=== PATIENT | female | born 1930 | race Caucasian/White ===

== ENCOUNTER 2016-06-21 11:38 | Emergency (ER) ==
[2016-06-21 11:50] VITALS: BP 150/79; TEMP 99.3; BMI 29.2
--- NOTE | 2016-06-21 14:41 | DI ---
Exam: Three x-rays of the left hand. Comparison: None available. Reason for exam: Fall on outstretched hand. FINDINGS: There is a comminuted fracture in the proximal left fifth metacarpal. No obvious disrupt ion of the carpal-metacarpal joint. No other fractures are seen. The joint spaces are relatively w ell maintained. There is mild arthrosis. Impression: Comminuted fracture of the proximal fifth metacarpal with overriding fracture fragments. Report faxed at [phone] hours on 06/21/2016
--- NOTE | 2016-06-21 14:41 | DI ---
EXAM: LEFT WRIST THREE VIEWS HISTORY: Injury, pain FINDINGS: There is a fracture at the base of the fifth metacarpal with mild displacement. The frac ture does not appear to extend into the joint and the joint remains grossly intact. No other defini te fracture is seen. The bones appear demineralized. There is pseudoarticulation between the dista l ulna and radius and early osteoarthritis especially at the level of the first carpal-metacarpal tino int. IMPRESSION: Fifth metacarpal fracture.
--- NOTE | 2016-06-21 14:58 | CT ---
EXAM: CT head without contrast. HISTORY: Initial presentation for facial trauma due to a fall. COMPARISON: 11/18/2015, 06/09/2014. TECHNIQUE: Multiple axial images of the brain were obtained from the skull base through the vertex without intravenous contrast. FINDINGS: There is no intracranial hemorrhage or extraaxial collection. The spann-white differentia tion is maintained without evidence for acute large vascular territory infarction. There are areas of periventricular and subcortical white matter low attenuation. The cortical sulci and cerebral ve ntricles are symmetrically enlarged. The basal cisterns are well visualized. There is no hydroceph alus, mass effect, or midline shift. Right occipital craniotomy changes noted. No calvarial fractu re identified. Chronic right maxillary sinusitis is incompletely imaged. Remainder of the paranasa l sinuses and mastoid air cells are clear. Left frontal scalp hematoma noted. Metallic structure a nterior to the right globe again noted. IMPRESSION: 1. No acute intracranial abnormality. 2. Chronic small vessel ischemic changes and atrophy.
--- NOTE | 2016-06-21 15:04 | ED.PDOC ---
General ED Provider: Dr. DANI HERNANDEZ JR Chief Complaint: Fall Stated Complaint: going into [employer] in [place], [place]--misjudged curb and fell- struck head--did not pass out--left hand and injured 4th/5th fingers to rt hand- -still has swelling and greenish discoloration to left forehead--is alert--no confusion since fall--states hand is worse injury[ End ]150/79 2 99.3 72 16 96 fall--left hand/wrist injury[ End ] Time Seen by Physician: 13:50 Mode of Arrival: Wheelchair Information Source: Patient Exam Limitations: No limitations Primary Care Provider: MELA FLOWERS Nursing and Triage Documentation Reviewed and Agree: No Review of Systems - Review Of Systems Constitutional: Reports: No symptoms Eyes: Reports: No symptoms Ears, Nose, Mouth, Throat: Reports: No symptoms (note left facial bruising) Respiratory: Reports: No symptoms Cardiac: Reports: No symptoms GI: Reports: No symptoms : Reports: No symptoms Musculoskeletal: Reports: Joint pain (left hand and wrist) Skin: Reports: No symptoms Neurological: Reports: No symptoms Endocrine: Reports: No symptoms Hematologic/Lymphatic: Reports: No symptoms All Other Systems: Other Past Medical History - Past Medical History Endocrine: Reports: None Cardiovascular: Reports: Hypertension Respiratory: Reports: None Hematological: Reports: None Gastrointestinal: Reports: None Genitourinary: Reports: None Neuro/Psych: Reports: None Musculoskeletal: Reports: None Cancer: Reports: None Last Menstrual Period: hysterectomy - Surgical History General Surgical History: Reports: Hysterectomy, Cholecystectomy, Tonsillectomy , Orthopedic (knee ), Other (cyst removed from ovary- ear surgery) - Family History Family History: Reports: Unknown - Social History Smoking Status: Never smoker Hx Substance Use: No Alcohol Screening: None Physical Exam - Physical Exam Appearance: Well-appearing, Thin Pain Distress: Mild Eyes: ANDRES, EOMI, Conjunctiva clear Neck: Supple Respiratory: Airway patent Musculoskeletal: Normal strength, ROM intact, No edema, No calf tenderness ( tender left lateral hand and wrist) Skin: Warm, Dry, Normal color (exceptbruising left hand and left face perrl eomi cn's intact) Neurological: Sensation intact, Motor intact, Alert, Oriented Psychiatric: Affect appropriate Critical Care Note - Critical Care Note Total Time (mins): 0 Course - Course Orders, Labs, Meds: Orders Category Date Time Status CT HEAD W/O CONTRAST Stat RADS 06/21/16 14:08 Completed HAND, LEFT 3 VIEWS Stat RADS 06/21/16 13:59 Completed WRIST, LEFT 3 VIEWS Stat RADS 06/21/16 13:59 Completed Vital Signs: Temp Pulse Resp BP Pulse Ox 06/21/16 11:38 99.3 F 72 16 150/79 H 96 Departure - Departure Time of Disposition: 15:06 Disposition: HOME SELF-CARE Discharge Problem: Fracture of left hand Qualifiers: Encounter type: initial encounter Fracture type: closed Qualifier Code: ( S62.92XA) Unspecified fracture of left wrist and hand, initial encounter for closed fracture Instructions: Hand Fracture (ED) Condition: Good Pt referred to PMD for follow-up: Yes Additional Instructions: follow up PMD discuss orthopedic evaluation Tylenol for pain [employer] for pain not controlled Prescriptions: Hydrocodone Bit/Acetaminophen [[employer] 5-325] 1 - 2 tab PO Q6HR PRN #12 tablet PRN Reason: pain Allergies/Adverse Reactions: Allergies quinine Adverse Reaction (Verified 06/21/16 11:47) Sulfa (Sulfonamide Antibiotics) Adverse Reaction (Verified 06/21/16 11:47) Home Medications: Ambulatory Orders Aspirin [Aspirin EC] 1 tab PO DAILY 12/02/12 Esomeprazole Magnesium [Nexium] 1 cap PO DAILY 12/02/12 Metoprolol Tartrate [Lopressor] 1 tab PO DAILY 12/02/12 Cholecalciferol (Vitamin D3) [Vitamin D3] 1,000 units PO DAILY 02/01/16 Losartan/Hydrochlorothiazide [Losartan-Hctz 100-25 mg Tab] 0.5 each PO DAILY Hydrocodone Bit/Acetaminophen [[employer] 5-325] 1 - 2 tab PO Q6HR PRN #12 tablet 11/28
== END 2016-06-21 15:16 | disposition home or self-care (01) ==
LOC: ED 11:38
DX: S62.317A Displaced fracture of base of fifth metacarpal bone, left hand, initial encounter for closed fracture (principal); S00.83XA Contusion of other part of head, initial encounter; S69.91XA Unspecified injury of right wrist, hand and finger(s), initial encounter; W01.0XXA Fall on same level from slipping, tripping and stumbling without subsequent striking against object, initial encounter
CPT/HCPCS: 99283

== ENCOUNTER 2017-01-09 06:24 | Outpatient (CLI) | END 2017-01-09 06:25 | disposition home or self-care (01) | LOC: CAR 06:24 | PROVIDERS: ATTEND Internal Medicine | DX: R06.02 Shortness of breath (principal); I10 Essential (primary) hypertension; Z01.810 Encounter for preprocedural cardiovascular examination | CPT/HCPCS: 93005; 93010 ==

== ENCOUNTER 2017-01-10 07:07 | Outpatient (CLI) ==
[2017-01-10] MEDS ORDERED: DOBUTAMINE 250 ML IV ONE (07:28)
[2017-01-10] MEDS ORDERED: ATROPINE SULFATE PFS ONE (07:29)
--- NOTE | 2017-01-10 12:41 | ECHO2D ---
Date of Exam: 01/09/17 Ordering Physician: MARIA LUISA FLOWERS Room #: OP Reason for Echo: SURGICAL CLEARANCE, SOB, HYPERTENSION M-Mode Normal Adult Results LV Dimensions Normal Adult Results AoV Opening excursions >1.6 >1.6 LVEDD-base- 3.5-5.8 4.8 Ao root dimensions 2.0-3.7 3.2 LVESD-base- 3.1-4.6 L. Atrium dimensions 1.9-3.8 3.9 Post. Wall thickness 0.8-1.1 1.1 IV septum (thickness) 0.7-1.2 1.3 Post. Wall excursion 0.72-1.3 NORMAL Septal motion 0.7 Systolic motion R. Ventricular cavity 1.5-2.0 NORMAL LVEF 60% 50% Paradoxical septal wall motion NORMAL 2-D : 2-D M Mode Echocardiogram was performed using apical four chamber and left parasternal long and short axis views. Mitral, tricuspid and aortic valves appear to be normal. Contractility of the left ventricle seems to be normal, so is the cavity size. Left atrial cavity size and aortic root appear to be normal. There is no pericardial effusion. There is no thrombus noted in the left ventricular or left aortic cavity. No mitral valve prolapse noted. M-MODE: MV: NORMAL AV: NORMAL TV: NORMAL PV: CHAMBER SIZE: NORMAL WALL MOTION: NORMAL PERICARDIUM: NORMAL INTERPRETATION: 1. BORDERLINE LEFT VENTRICULAR HYPERTROPHY 2. NORMAL LEFT VENTRICULAR CONTRACTILITY 3. NORMAL VALVES MTDD
--- NOTE | 2017-01-11 11:07 | DOBSTECHO ---
Ordering Physician: MELA FLOWERS Date of Test: 01/11/17 Reason for Examination: SURGICAL CLEARANCE, SOB, HYPERTENSION Current Medications: LOSARTAN, LOPRESSOR, VITAMIN D3, PROTONIX, ASA Height: 62" Weight: 165 Target Heart Rate: 115/136 ST Segment Stage Time HR BPM BP mmhg Rhythm +/- Up Down Comments/Symptoms Control Sitting 68 148/88 SR NONE Dobutamine 250mg/D5W 5cmg/KG/mn 10cmg/KG/mn 3" 80 170/82 SR NONE 15cmg/KG/mn 2" 83 170/76 SR NONE 20cmg/KG/mn 2" 90 150/72 SR NONE 25cmg/KG/mn 2" 90 140/64 SR .25 ATROPINE GIVEN 30cmg/KG/mn 2" 92 SR NONE 35cmg/KG/mn 2:06 126 140/66 SR .25 ATROPINE GIVEN 40cmg/KG/mn Time: 3" HR B/P Time: 9" HR B/P Time: HR B/P Recovery 108 136/74 Recovery 82 Recovery Total Time: 13:06 Maximum Heart Rate Reached: 126 Interpretation: 98% OXYGEN SATURATION ON ROOM AIR AT REST 1. NO EVIDENCE OF ISCHEMIA BY ST-T WAVE 2. NO CHEST PAIN OR DISCOMFORT 3. NORMAL LEFT VENTRICULAR CONTRACTILITY--RESTING AND WITH DOBUTAMINE INFUSION 4. [] MTDD
--- NOTE | 2017-01-11 11:10 | ECHOSTRESS ---
Date of Exam: 01/10/17 Ordering Physician: MELA FLOWERS Reason for Echo: SURGICAL CLEARANCE, SOB, HTN, DOBUTAMINE STRESS--NO ISCHEMIA M-Mode Normal Adult Results LV Dimensions Normal Adult Results AoV Opening excursions >1.6 LVEDD-base- 3.5-5.8 Ao root dimensions 2.0-3.7 LVESD-base- 3.1-4.6 L. Atrium dimensions 1.9-3.8 Post. Wall thickness 0.8-1.1 IV septum (thickness) 0.7-1.2 Post. Wall excursion 0.72-1.3 Septal motion Systolic motion R. Ventricular cavity 1.5-2.0 LVEF 60% Paradoxical septal wall motion 2-D: NORMAL LEFT VENTRICULAR CONTRACTILITY--RESTING AND WITH DOBUTAMINE INFUSION M-MODE: MV: AV: TV: PV: CHAMBER SIZE: WALL MOTION: NORMAL LEFT VENTRICULAR CONTRACTILITY--RESTING AND WITH DOBUTAMINE INFUSION PERICARDIUM: INTERPRETATION: 1. NORMAL LEFT VENTRICULAR CONTRACTILITY--RESTING AND WITH DOBUTAMINE INFUSION MTDD
== END 2017-01-10 07:08 | disposition home or self-care (01) ==
LOC: CAR 07:07
PROVIDERS: ATTEND Internal Medicine
DX: R06.02 Shortness of breath (principal); I10 Essential (primary) hypertension; Z01.810 Encounter for preprocedural cardiovascular examination

== ENCOUNTER 2017-01-19 12:29 | Inpatient (IN) ==
[2017-01-19 12:55] VITALS: BMI 30.9
[2017-01-19] MEDS ORDERED: PHENERGAN TAB PO PRN (13:09)
--- NOTE | 2017-01-19 14:59 | RS.PTINEVL ---
Subjective - Patient information Date of Evaluation: 01/19/17 Date of Arrival on Unit: 01/19/17 Admitted From:: Facility Transfer Diagnosis: OA Usual Living Arrangement: Alone Home Environment: House, Stairs (few) (1 step into house), No rail Medical History: Hypertension, Arthritis Medical History Comments:: GERD LATEX ALLERGY?: No Surgical History: Knee Replacement, Hysterectomy Surgical History Comments:: facial nerve surgery, inner ear sx Subjective Information/ Patient Comments:: pt states the "blister" area on post thigh is hurting more today. pt states it is from tape that made a blister. 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 Incision R knee with drsg intact with drainage noticeable on drsg. Range of Motion - ROM Right Upper Extremity AROM: WFL's Left Upper Extremity AROM: WFL's Right Lower Extremity AROM: Marked limitation (R knee flex 55 ext -12 AAROM) Left Lower Extremity AROM: WFL's Muscle Strength - Muscle Strength Right Upper Extremity Strength: Mild Weakness (grossly 4/5) Left Upper Extremity Strength: Mild Weakness (grossly 4/5) Right Lower Extremity Strength: Mild Weakness (hip flex 3+/5, knee flex/ext 3-/5 , ankle DF/PF 4/5) Left Lower Extremity Strength: Mild Weakness (grossly 4+/5) Sensation - Sensation Right Upper Extremity Sensation: Intact/Normal Left Upper Extremity Sensation: Intact/Normal Right Lower Extremity Sensation: Intact/Normal Left Lower Extremity Sensation: Intact/Normal Palpation Palpation Findings: Muscle Guarding (R knee) Balance - Sitting Balance and Reactions Static Sitting Balance: Normal Dynamic Sitting Balance: Normal - Standing Balance and Reactions Static Standing Balance: Fair Dynamic Standing Balance: Poor Standing Equilibrium Reactions: Delayed Left, Delayed Right Standing Protective Reactions: Delayed Left, Delayed Right - Comments Balance Assessment Comments: pt with antalgic gait and flexed posture limiting balance. Functional Mobility - Bed Mobility Rolling R/L: CGA Scooting: Min Assist Supine to Sit: Min Assist Sit to Supine: Min Assist - Transfers Sit to Stand: Min Assist, 1 person assist Stand to Sit: Min Assist, 1 person assist - Safety Awareness Safety Awareness: Good Ambulation - Ambulation Weight Bearing Status: WBAT Assistive Device Used: Rolling Walker Orthotic/Prosthetic Device: No Distance: 100ft Assistance needed with Ambulation: CGA Gait Deviations: Forward posture, Short stride Ambulation Comments: pt amb with antalgic gait with decreased heel strike/toe off on RLE as well as limited R knee flex with gait. Factors Affecting Ambulation: Decreased Balance, Pain, Weakness, Decreased ROM, Decreased Safety, Limited Endurance Treatment time - Time with patient Total treatment time: 42 Patient Education - Education Patient Education: Home Exercise Program, Activity Modification, Education of Plan of Care Teaching Recipient: Patient, Family (Discussion with patient and family regarding TKR protocol and POC) Teaching Methods: Discussion Assessment - Assessment Problem List:: Decreased level of function, Requires training/education, Decreased safety/Risk of falls, Weakness, Pain limits previous level of function Rehab Potential: Good Further Therapy Indicated?: Yes Short Term Goals GOAL #1: pt demonstrate independence with rolling and scooting up in bed Goal to be met by: 01/26/17 GOAL #2: pt transfer sup to/from sit to/from stand CGA to SBA Goal to be met by: 01/26/17 GOAL #3: pt amb with rwx 150ft with increased heel strike on R with CGA Goal to be met by: 01/26/17 Deaf/Hard Of Hearing Specialist Goals GOAL #1: pt transfer sup to/from sit to/from stand indepenently Goal to be met by: 02/02/17 GOAL #2: pt amb 200ft with rwx with no LOB with improved heel strike independently Goal to be met by: 02/02/17 GOAL #3: pt with improved ROM R knee flex 95 ext 0 and independent with HEP Goal to be met by: 02/02/17 Plan Plan of Care: Therapeutic EX, Therapeutic Activity, Self-Care/Home Management Modalities: Cold Pack/Cryotherapy, Electrical Stimulation Other:: gait training Frequency of Treatment: 1-2 X day, as tolerated Duration of Treatment: 2 Weeks Anticipated Discharge Destination: Home Has the Physician been added for Co-signature?: Yes
[2017-01-19] MEDS: PERCOCET 5-325 PO PRN (17:06)
[2017-01-19] MEDS: ASPIRIN EC PO SCH (17:06)
[2017-01-19] MEDS ORDERED: TORADOL IVP SCH (21:00)
[2017-01-20] MEDS: PERCOCET 5-325 PO PRN ×4 (02:00→20:19)
[2017-01-20] MEDS: PROTONIX PO SCH (05:56)
[2017-01-20] MEDS: COLACE PO SCH (08:18)
[2017-01-20] MEDS: VITAMIN D PO SCH (08:18)
[2017-01-20] MEDS: HYZAAR 50-12.5 MG TAB PO SCH (08:18)
[2017-01-20] MEDS: LOPRESSOR PO SCH (08:18)
[2017-01-20] MEDS: ASPIRIN EC PO SCH ×2 (08:18→17:13)
[2017-01-20] MEDS ORDERED: LOSARTAN PO SCH (09:00)
[2017-01-20] MEDS ORDERED: HYDROCHLOROTHIAZIDE PO SCH (09:00)
[2017-01-20] MEDS ORDERED: [UNRECOGNIZED DRUG - OTHER] PO SCH (09:00)
[2017-01-20] MEDS: FERROUS SULFATE PO SCH (20:15)
[2017-01-21] MEDS: PROTONIX PO SCH (05:46)
[2017-01-21] MEDS: PERCOCET 5-325 PO PRN ×4 (06:09→23:11)
[2017-01-21] MEDS: HYZAAR 50-12.5 MG TAB PO SCH (08:28)
[2017-01-21] MEDS: ASPIRIN EC PO SCH ×2 (08:28→17:07)
[2017-01-21] MEDS: VITAMIN D PO SCH (08:28)
[2017-01-21] MEDS: LOPRESSOR PO SCH (08:28)
[2017-01-21] MEDS: FERROUS SULFATE PO SCH ×2 (08:29→20:06)
[2017-01-21] MEDS: COLACE PO SCH (08:29)
[2017-01-22] MEDS: PERCOCET 5-325 PO PRN ×4 (04:45→20:43)
[2017-01-22] MEDS: PROTONIX PO SCH (05:32)
[2017-01-22] MEDS: LOPRESSOR PO SCH (08:12)
[2017-01-22] MEDS: COLACE PO SCH (08:12)
[2017-01-22] MEDS: FERROUS SULFATE PO SCH ×2 (08:12→20:43)
[2017-01-22] MEDS: HYZAAR 50-12.5 MG TAB PO SCH (08:12)
[2017-01-22] MEDS: VITAMIN D PO SCH (08:12)
[2017-01-22] MEDS: ASPIRIN EC PO SCH ×2 (08:12→16:34)
--- NOTE | 2017-01-22 10:25 | PCM.PROG ---
Attending Provider: ATTENDING PROVIDER: Dr. MELA FLOWERS This patient is seen with Sherri Mclean, Nurse Practitioner. DATE OF SERVICE: 01/22/17 SUBJECTIVE: This 86 year old WHITE/ F was hospitalized 01/19/17. The patient is sitting in chair, alert, is feeling better. She is able to walk to bathroom. She would like Ensure with her meals. REVIEW OF SYSTEMS: CONSTITUTIONAL: No night sweats. No fatigue, malaise, lethargy. No fever or chills. HEENT: Eyes: No visual changes. No eye pain. No eye discharge. ENT: No runny nose. No epistaxis. No sinus pain. No odynophagia. No congestion. RESPIRATORY: No cough, no congestion. No hemoptysis. No shortness of breath. CARDIOVASCULAR: No angina symptoms. No CHF symptoms. No atypical chest pain for CAD. No palpitations. No orthopnea.. GASTROINTESTINAL: Decreased appetite. No abdominal pain. No nausea or vomiting. No diarrhea or constipation. No hematemesis. No hematochezia. GENITOURINARY: No urgency. No frequency. No dysuria. No hematuria. No obstructive symptoms. No discharge. No pain. No significant abnormal bleeding. MUSCULOSKELETAL: Right knee pain. NEUROLOGICAL: Awake, alert, oriented to time, place and person. No headache. No neck pain. No syncope. No seizures. No dizziness. PSYCHIATRIC: Not anxious. No depression. No suicidal thoughts. No homicidal thoughts. SKIN: No rash. Incision right anterior knee, healthy looking. ENDOCRINE: No unexplained weight loss. No weight gain. HEMATOLOGIC/LYMPHATIC: No anemia. No purpura. No petechiae. No prolonged or excessive bleeding. No palpable lymph nodes. PHYSICAL EXAMINATION: GENERAL: The patient is awake, alert and oriented, sitting in chair in no distress. VITAL SIGNS: Temperature 98.4 F, Pulse 82, Respiratory Rate 18, BP 120/64, Pulse Ox 95% HEENT: Head normocephalic, atraumatic. Eyes: Extraocular muscles are intact. Pupils are equal, round and reactive to light and accommodation. Ears: No lesions. Nose appeared normal. Throat: No exudate or erythema. NECK: Supple. No JVD, no carotid bruit. No lymphadenopathy or thyromegaly. LUNGS: Clear to auscultation. Percussion note normal. Chest symmetrical. HEART: S1, S2, no S3. No murmurs. No cyanosis or clubbing. No ascites. Pulses: Dorsalis pedis and posterior tibial pulses +1 to +2 both sides. ABDOMEN: Soft. Non-tender. Bowel sounds active. No CVA tenderness. No mass felt. EXTREMITIES: No edema. Full range of motion of all extremities, equal. NEUROLOGIC: No focal deficit. Cranial nerves II through XII are grossly intact. No headache, no double vision or headache. SKIN: Warm, dry and intact. Incision right anterior knee davian in place with scant serosanguinous drainage with bruising surrounding incision. No signs or symptoms of infection. LYMPHATIC: No palpable lymph nodes/no lymphedema. MUSCULOSKELETAL: Normal joints with no swelling. Muscle tone is normal. LAB REVIEW: 01/22/17 04:20 01/22/17 04:20 01/22/17 04:20: Sodium 137, Potassium 3.7, Chloride 104, Carbon Dioxide 24, Anion Gap 12.7, BUN 18, Creatinine 0.71, Estimated GFR (MDRD) 78.00, BUN/ Creatinine Ratio 25.35, Glucose 108, Calcium 8.8, Total Bilirubin 0.90, AST 15, ALT 7 L, Alkaline Phosphatase 56, Total Protein 6.2, Albumin 2.3 L, Globulin 3.9 , Albumin/Globulin Ratio 0.59 01/22/17 04:20: WBC 6.07, RBC 2.91 L, Hgb 8.8 L, Hct 26.2 L, MCV 90.0, MCH 30.2 , MCHC 33.6, RDW Coeff of Liudmila 13.3, Plt Count 291, Immature Gran % (Auto) 0.7, Neut % (Auto) 54.8, Lymph % (Auto) 27.5, Thurston % (Auto) 12.7 H, Eos % (Auto) 3.8 , Baso % (Auto) 0.5, Immature Gran # (Auto) 0.0, Neut # 3.3, Lymph # 1.7, Thurston # 0.8, Eos # 0.2, Baso # 0.0 ASSESSMENT: 1. Right total knee replacement 2. Gait disturbance 3. Anemia related to surgery PLAN: 1. Ensure twice daily 2. Continue PT/OT Plan and coordination of the patient's care discussed in the presence of Guest Services Associate and nurse. CONDITION: Stable SCRIBED BY: BART GUNDERSON Director Design scribed while in presence of service performed by Dr. Flowers/Sherri Mclean APRN on 01/22/17 (0109)
--- NOTE | 2017-01-22 11:49 | RS.OTINEVL ---
Subjective - Patient information Date of Evaluation: 01/22/17 Date of Arrival on Unit: 01/19/17 Admitted From:: Facility Transfer Diagnosis: R TKA, Muscle weakness Usual Living Arrangement: Alone Living Arrangement Comments: Pt lives alone in her house. Pt was independent with all ADLS prior to her surgery. Her niece helps her. Home Environment: House, Stairs (few) (1 step into house), No rail Medical History: Hypertension, Arthritis Medical History Comments:: GERD LATEX ALLERGY?: No Surgical History: Knee Replacement, Hysterectomy Surgical History Comments:: facial nerve surgery, inner ear sx, hysterectomy, Tonsillectomy Subjective Information/ Patient Comments:: "I am having trouble bending it." "I need a Bed side commode thing that goes over the toilet to help me get up. 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 Current Level of Function: Partially Dependent Current Equipment Used at Home: rwx, cane Pain Assessment - Pain Pain Score: 6 Side: right Pain Location Body Site: Knee Pain Aggravating Factors: ADL's, Changing Position, Standing, Sitting, Walking Pain Alleviating Factors: Ice, Medication, Lying Supine Interventions - Objective Patient Orientation: Person, Place, Time, Situation Observation: Pt has bruising in the back of her Right leg. Interventions - ROM Right Upper Extremity AROM: WFL's Left Upper Extremity AROM: WFL's - Strength Right Upper Extremity Strength: Mild Weakness Left Upper Extremity Strength: Mild Weakness - Sensation Right Upper Extremity Sensation: Intact/Normal Left Upper Extremity Sensation: Intact/Normal Balance - Sitting Balance Static Sitting Balance: Good Dynamic Sitting Balance: Good - Standing Balance Static Standing Balance: Fair Dynamic Standing Balance: Fair ADL Skills - Self Feeding Self Feeding: Independent - Grooming Grooming: CGA - Bathing Bathing UE: CGA, Min Assist Bathing LE: Mod Assist - Dressing Dressing UE: CGA Dressing LE: Max Assist - Toilet Management Toileting Management: Min Assist Functional Mobility - Bed Mobility Rolling R/L: Independent Scooting: Supervision Supine to Sit: Supervision Sit to Supine: Supervision - Transfers Sit to Stand: CGA Stand to Sit: CGA Stand Pivot Transfers: CGA - Ambulation Weight Bearing Status: WBAT Assistive Device Used: Rolling Walker Assistance needed with Ambulation: CGA - Safety Awareness Safety Awareness: Good Additional Treatment Performed - Additional units charged Exercise: 15 ADL: 15 - Time with patient Total treatment time: 58 Activities Patient Interests:: Watching Television, Visiting/Socializing Patient Education Patient Education: Education of diagnosis, Home Exercise Program, Home Safety Teaching Recipient: Patient Teaching Methods: Discussion, Demonstration Assessment Problem List:: Decreased level of function, Requires training/education, Decreased safety/Risk of falls, Weakness, Pain limits previous level of function Rehab Potential: Good Further Therapy Indicated?: Yes Short Term Goals - Goals GOAL 1: Pt to tolerate sink level activities CGA Goal to be met by: 01/29/17 GOAL 2: Pt to increase LB dressing to CGA. Goal to be met by: 01/29/17 GOAL 3: Pt to tolerate standing activity for 15 minutes. Goal to be met by: 01/29/17 Shelter Goals GOAL 1: Pt to tolerate sink level activities Mod-I. Goal to be met by: 02/09/17 GOAL 2: Pt to increase Self care management to Mod-I. Goal to be met by: 02/09/17 GOAL 3: Pt to tolerate standing activity for 20 minutes. Goal to be met by: 02/09/17 Plan Plan of Care: Therapeutic EX, Neuromuscular Re-Educ, Therapeutic Activity, Self- Care/Home Management Frequency of Treatment: 1-2 X day, as tolerated Duration of Treatment: 2 Weeks Anticipated Discharge Destination: Home Has the Physician been added for Co-signature?: Yes
--- NOTE | 2017-01-22 13:59 | HP ---
DATE OF SERVICE: 01/19/17 REASON FOR HOSPITALIZATION/HISTORY OF PRESENT ILLNESS: 86-year-old white female is in the swing bed after right total knee replacement on 01/16/17 at [facility]. The patient is complaining of right knee soreness. PAST MEDICAL HISTORY: Hypertension Dyslipidemia Colon polyps Diabetes mellitus, borderline Facial palsy Bronchial asthma PAST SURGICAL HISTORY: Left total knee replacement 2010 REVIEW OF SYSTEMS: CONSTITUTIONAL: No night sweats. No fatigue, malaise, lethargy. No fever or chills. HEENT: Eyes: No visual changes. No eye pain. No eye discharge. ENT: No runny nose. No epistaxis. No sinus pain. No sore throat. No odynophagia. No ear pain. No congestion. RESPIRATORY: No cough, no congestion. No hemoptysis. No shortness of breath. CARDIOVASCULAR: No angina symptoms. No CHF symptoms. No atypical chest pain for CAD. No palpitations. No orthopnea. GASTROINTESTINAL: No abdominal pain. No nausea or vomiting. No diarrhea or constipation. No hematemesis. No hematochezia. GENITOURINARY: No urgency. No frequency. No dysuria. No hematuria. No obstructive symptoms. No discharge. No pain. No significant abnormal bleeding. MUSCULOSKELETAL: Right knee soreness. NEUROLOGICAL: No headache. No neck pain. No syncope. No seizures. No dizziness. PSYCHIATRIC: Not anxious. No depression. No suicidal thoughts. No homicidal thoughts. SKIN: No rash. Right knee incision. ENDOCRINE: No unexplained weight loss. No weight gain. HEMATOLOGIC/LYMPHATIC: No anemia. No purpura. No petechiae. No prolonged or excessive bleeding. No palpable lymph nodes. PERSONAL/FAMILY/SOCIAL HISTORY: The patient is , nonsmoker, no alcohol use. MEDICATIONS: Lopressor 50 mg p.o. daily Aspirin one a day Losartan 100-25 one-half tab daily Lorazepam 0.5 mg p.r.n. Protonix 40 mg p.o. daily ALLERGIES: SULFA, QUININE PHYSICAL EXAMINATION: GENERAL: The patient is oriented to time, place and person. VITAL SIGNS: Temperature 98, pulse 70, respiratory rate 15, BP 138/74. Height 5' 2; weight 165 lbs. HEENT: Head normocephalic, atraumatic. Eyes: Extraocular muscles are intact. Pupils are equal, round and reactive to light and accommodation. Ears: No lesions. Nose appeared normal. Throat: No exudate or erythema. NECK: Supple. No JVD, no carotid bruit. No lymphadenopathy or thyromegaly. LUNGS: Decreased breath sounds but clear to auscultation. Percussion note normal. Chest symmetrical. HEART: S1, S2, no S3. No murmurs. No cyanosis or clubbing. No ascites. Pulses: Dorsalis pedis and posterior tibial pulses +1 to +2 both sides. ABDOMEN: Soft. Nontender. Bowel sounds active. No CVA tenderness. No mass felt. EXTREMITIES: Right knee is swollen, right calf has swelling, no redness noted. Left lower extremity normal. Full range of motion of all extremities, equal. NEUROLOGIC: No focal deficit. Cranial nerves II through XII are grossly intact. No headache, no double vision or headache. SKIN: Not dry. Intact. Turgor - normal. LYMPHATIC: No palpable lymph nodes/no lymphedema. MUSCULOSKELETAL: Normal joints with no swelling. Muscle tone is normal. ASSESSMENT: 1. RIGHT TOTAL KNEE REPLACEMENT 01/16/17 WITHOUT ANY COMPLICATIONS 2. HYPERTENSION 3. ASTHMA 4. DYSLIPIDEMIA 5. COLONIC POLYP 6. DIABETES MELLITUS 7. FACIAL PALSY 8. LEFT TOTAL KNEE REPLACEMENT 2010 PLAN: 1. Continue all the medicine, Lopressor, Losartan, Lorazepam, Protonix 2. Continue blood thinner 3. Physical therapy consultation 4. Will watch the wound for any infection; also will watch for DVT CONDITION: Stable TIME SPENT: More than 70 minutes. MTDD
--- NOTE | 2017-01-22 14:33 | PN ---
DATE OF SERVICE: 01/20/17 SUBJECTIVE: 86-year-old white female hospitalized with right total knee replacement done four days ago. The patient is feeling better. She is complaining of soreness of the right knee. REVIEW OF SYSTEMS: CONSTITUTIONAL: No night sweats. No fatigue, malaise, lethargy. No fever or chills. HEENT: Eyes: No visual changes. No eye pain. No eye discharge. ENT: No runny nose. No epistaxis. No sinus pain. No sore throat. No odynophagia. No congestion. RESPIRATORY: No cough, no congestion. No hemoptysis. No shortness of breath. CARDIOVASCULAR: No angina symptoms. No CHF symptoms. No atypical chest pain for CAD. No palpitations. No orthopnea. GASTROINTESTINAL: Appetite seems to be improving. No abdominal pain. No nausea or vomiting. No diarrhea or constipation. No hematemesis. No hematochezia. GENITOURINARY: No urgency. No frequency. No dysuria. No hematuria. No obstructive symptoms. No discharge. No pain. No significant abnormal bleeding. MUSCULOSKELETAL: Soreness of right knee. NEUROLOGICAL: No headache. No neck pain. No syncope. No seizures. No dizziness. PSYCHIATRIC: Not anxious. No depression. No suicidal thoughts. No homicidal thoughts. SKIN: No rash. No lesions. No wounds. ENDOCRINE: No unexplained weight loss. No weight gain. HEMATOLOGIC/LYMPHATIC: No anemia. No purpura. No petechiae. No prolonged or excessive bleeding. No palpable lymph nodes. PHYSICAL EXAMINATION: GENERAL: The patient is oriented to time, place and person. VITAL SIGNS: Temperature 98, pulse 93, respiratory rate 20, BP 112/60, pulse ox 94%, looks somewhat pale. No JVP, no bruit. HEENT: Head normocephalic, atraumatic. Eyes: Extraocular muscles are intact. Pupils are equal, round and reactive to light and accommodation. Ears: No lesions. Nose appeared normal. Throat: No exudate or erythema. NECK: Supple. No JVD, no carotid bruit. No lymphadenopathy or thyromegaly. LUNGS: Clear to auscultation. Percussion note normal. Chest symmetrical. HEART: S1, S2, no S3. No murmurs. No cyanosis or clubbing. No ascites. Pulses: Dorsalis pedis and posterior tibial pulses +1 to +2 both sides. ABDOMEN: Soft. Nontender. Bowel sounds active. No CVA tenderness. No mass felt. EXTREMITIES: Right knee is swollen. No evidence of infection or drainage. The calf muscles are particularly nontender. Mild swelling of the right calf. No red streaks. Full range of motion of all extremities, equal. NEUROLOGIC: No focal deficit. Cranial nerves II through XII are grossly intact. No headache, no double vision or headache. SKIN: Not dry. Intact. Turgor - normal. LYMPHATIC: No palpable lymph nodes/no lymphedema. MUSCULOSKELETAL: Normal joints with no swelling. Muscle tone is normal. LABS: Hemoglobin 8.4, hematocrit 25. ASSESSMENT: 1. Right knee replacement 2. Anemia 3. Left total knee replacement 2010 requiring blood transfusion 4. Hypertension PLAN: 1. Daily CBC, CMP 2. Will also put her on iron supplements 3. The patient is already on Protonix 4. T4 and TSH in the morning 5. The patient is going to be continued on physical therapy, she is a good candidate. She is motivated. CONDITION: Stable. TIME SPENT: More than 30 minutes. Plan and coordination of the patient's care discussed in the presence of nurse. PARAM
[2017-01-23] MEDS: PERCOCET 5-325 PO PRN ×3 (04:02→20:29)
[2017-01-23] MEDS: PROTONIX PO SCH (05:51)
--- NOTE | 2017-01-23 07:04 | PN ---
DATE OF SERVICE: 01/22/17 SUBJECTIVE: 86-year-old white female hospitalized with right knee replacement. The patient' s incision is healing well. The leg doesn't show any swelling. Hemoglobin and hematocrit is stable. PHYSICAL EXAMINATION: HEENT: Head normocephalic, atraumatic. Eyes: Extraocular muscles are intact. Pupils are equal, round and reactive to light and accommodation. Ears: No lesions. Nose appeared normal. Throat: No exudate or erythema. NECK: Supple. No JVD, no carotid bruit. No lymphadenopathy or thyromegaly. LUNGS: Decreased breath sounds. Clear to auscultation. Percussion note normal. Chest symmetrical. HEART: S1, S2, no S3. No murmurs. No cyanosis or clubbing. No ascites. Pulses: Dorsalis pedis and posterior tibial pulses +1 to +2 both sides. ABDOMEN: Soft. Nontender. Bowel sounds active. No CVA tenderness. No mass felt. EXTREMITIES: Right knee swollen. No evidence of infection. Full range of motion of all extremities, equal. NEUROLOGIC: No focal deficit. Cranial nerves II through XII are grossly intact. No headache, no double vision or headache. SKIN: Not dry. Intact. Turgor - normal. LYMPHATIC: No palpable lymph nodes/no lymphedema. MUSCULOSKELETAL: Normal joints with no swelling. Muscle tone is normal. The patient was seen and examined with nurse practitioner and patient case manager. CONDITION: Stable TIME SPENT: More than 30 minutes. Plan and coordination of the patient's care discussed in the presence of nurse. PARAM
[2017-01-23] MEDS: COLACE PO SCH (09:25)
[2017-01-23] MEDS: LOPRESSOR PO SCH (09:25)
[2017-01-23] MEDS: ASPIRIN EC PO SCH ×2 (09:25→17:07)
[2017-01-23] MEDS: HYZAAR 50-12.5 MG TAB PO SCH (09:25)
[2017-01-23] MEDS: FERROUS SULFATE PO SCH ×2 (09:25→20:29)
[2017-01-23] MEDS: VITAMIN D PO SCH (09:25)
--- NOTE | 2017-01-23 09:38 | PN ---
DATE OF SERVICE: 01/23/17 SUBJECTIVE: The patient is hospitalized with right knee replacement. The right knee soreness is much less. She is up and about. Hemoglobin and hematocrit are stable. No evidence of active GI bleed. She is on aspirin one twice a day. Right calf is nontender. No evidence of DVT clinically. PHYSICAL EXAMINATION: HEENT: Head normocephalic, atraumatic. Eyes: Extraocular muscles are intact. Pupils are equal, round and reactive to light and accommodation. Ears: No lesions. Nose appeared normal. Throat: No exudate or erythema. NECK: Supple. No JVD, no carotid bruit. No lymphadenopathy or thyromegaly. LUNGS: Clear to auscultation. Percussion note normal. Chest symmetrical. HEART: S1, S2, no S3. No murmurs. No cyanosis or clubbing. No ascites. Pulses: Dorsalis pedis and posterior tibial pulses +1 to +2 both sides. ABDOMEN: Soft. Nontender. Bowel sounds active. No CVA tenderness. No mass felt. EXTREMITIES: No edema. Full range of motion of all extremities, equal. NEUROLOGIC: No focal deficit. Cranial nerves II through XII are grossly intact. No headache, no double vision or headache. SKIN: Not dry. Intact. Turgor - normal. LYMPHATIC: No palpable lymph nodes/no lymphedema. MUSCULOSKELETAL: Normal joints with no swelling. Muscle tone is normal. NOTE: The patient had blood transfusions given during last left knee replacement 2010. The patient's condition is stable. The patient is seen and examined with nurse practitioner and case picker. TIME SPENT: More than 30 minutes. Plan and coordination of the patient's care discussed in the presence of nurse. PARAM
[2017-01-23] MEDS: NYSTATIN ORAL SUSP PO SCH ×2 (17:59→20:29)
[2017-01-24] MEDS: PROTONIX PO SCH (05:32)
[2017-01-24] MEDS: NYSTATIN ORAL SUSP PO SCH ×4 (05:32→20:08)
[2017-01-24] MEDS: PERCOCET 5-325 PO PRN ×2 (06:41→20:08)
[2017-01-24] MEDS: FERROUS SULFATE PO SCH ×2 (08:57→20:08)
[2017-01-24] MEDS: LOPRESSOR PO SCH (08:57)
[2017-01-24] MEDS: VITAMIN D PO SCH (08:57)
[2017-01-24] MEDS: ASPIRIN EC PO SCH ×2 (08:57→16:38)
[2017-01-24] MEDS: COLACE PO SCH (08:57)
[2017-01-24] MEDS: HYZAAR 50-12.5 MG TAB PO SCH (08:57)
--- NOTE | 2017-01-24 09:52 | PCM.PROG ---
Attending Provider: ATTENDING PROVIDER: Dr. MELA FLOWERS DATE OF SERVICE: 01/24/17 SUBJECTIVE: This 86 year old WHITE/ F was hospitalized 01/19/17. The patient is hospitalized on the swing bed with right knee replacement. Hemoglobin and hematocrit are stable with no further drop. The patient has a large hematoma posterior right thigh from surgery. The calf is mildly discolored with hematoma but seems to be getting better. Incision looks clean with no infection and has multiple davian. The patient is motivated, is up and about progressing well with PT. She has stomatitis and being treated with Nystatin. REVIEW OF SYSTEMS: CONSTITUTIONAL: No night sweats. No fatigue, malaise, lethargy. No fever or chills. HEENT: Eyes: No visual changes. No eye pain. No eye discharge. ENT: No runny nose. No epistaxis. No sinus pain. No odynophagia. No congestion. RESPIRATORY: No cough, no congestion. No hemoptysis. No shortness of breath. CARDIOVASCULAR: No angina symptoms. No CHF symptoms. No atypical chest pain for CAD. No palpitations. No orthopnea.. GASTROINTESTINAL: No abdominal pain. No nausea or vomiting. No diarrhea or constipation. No hematemesis. No hematochezia. GENITOURINARY: No urgency. No frequency. No dysuria. No hematuria. No obstructive symptoms. No discharge. No pain. No significant abnormal bleeding. MUSCULOSKELETAL: No musculoskeletal pain; no joint swelling. NEUROLOGICAL: Awake, alert, oriented to time, place and person. No headache. No neck pain. No syncope. No seizures. No dizziness. PSYCHIATRIC: Not anxious. No depression. No suicidal thoughts. No homicidal thoughts. SKIN: No rash. No lesions. Right knee incision with some bruising. ENDOCRINE: No unexplained weight loss. No weight gain. HEMATOLOGIC/LYMPHATIC: No anemia. No purpura. No petechiae. No prolonged or excessive bleeding. No palpable lymph nodes. PHYSICAL EXAMINATION: GENERAL: The patient is awake, alert and oriented, lying in bed in no distress. VITAL SIGNS: Temperature 98.4 F, Pulse 86, Respiratory Rate 16, BP 135/71, Pulse Ox 96% HEENT: Head normocephalic, atraumatic. Eyes: Extraocular muscles are intact. Pupils are equal, round and reactive to light and accommodation. Ears: No lesions. Nose appeared normal. Throat: No exudate or erythema. NECK: Supple. No JVD, no carotid bruit. No lymphadenopathy or thyromegaly. LUNGS: Clear to auscultation. Percussion note normal. Chest symmetrical. HEART: S1, S2, no S3. No murmurs. No cyanosis or clubbing. No ascites. Pulses: Dorsalis pedis and posterior tibial pulses +1 to +2 both sides. ABDOMEN: Soft. Non-tender. Bowel sounds active. No CVA tenderness. No mass felt. EXTREMITIES: No edema. Full range of motion of all extremities, equal. NEUROLOGIC: No focal deficit. Cranial nerves II through XII are grossly intact. No headache, no double vision or headache. SKIN: Warm and dry. Intact. Turgor-normal. Right knee incision with some bruising, no evidence of infection. LYMPHATIC: No palpable lymph nodes/no lymphedema. MUSCULOSKELETAL: Normal joints with no swelling. Muscle tone is normal. LAB REVIEW: 01/24/17 04:15 01/24/17 04:15 01/24/17 04:15: Sodium 137, Potassium 3.4 L, Chloride 102, Carbon Dioxide 25, Anion Gap 13.4, BUN 18, Creatinine 0.69, Estimated GFR (MDRD) 81.00, BUN/ Creatinine Ratio 26.08, Glucose 103, Calcium 8.9, Total Bilirubin 0.87, AST 15, ALT 8 L, Alkaline Phosphatase 54, Total Protein 6.2, Albumin 2.4 L, Globulin 3.8 , Albumin/Globulin Ratio 0.63 01/24/17 04:15: WBC 6.69, RBC 2.95 L, Hgb 8.8 L, Hct 26.3 L, MCV 89.2, MCH 29.8 , MCHC 33.5, RDW Coeff of Liudmila 13.2, Plt Count 355, Immature Gran % (Auto) 0.6, Neut % (Auto) 53.7, Lymph % (Auto) 28.7, Brown % (Auto) 12.7 H, Eos % (Auto) 3.7 , Baso % (Auto) 0.6, Immature Gran # (Auto) 0.0, Neut # 3.6, Lymph # 1.9, Brown # 0.9, Eos # 0.3, Baso # 0.0 ASSESSMENT/PLAN: 1. RIGHT KNEE REPLACEMENT RECOVERING WELL SO FAR WITH NO FURTHER COMPLICATIONS 2. ANEMIA STABLE 3. MILD HYPOKALEMIA TREATED WITH POTASSIUM SUPPLEMENTS 4. HEMATOMA MONITORED, SEEMS TO BE RESOLVING Plan and coordination of the patient's care discussed in the presence of Associate Financial Representative and nurse. CONDITION: Stable SCRIBED BY: BART GUNDERSON Dog Food Dough Mixer scribed while in presence of service performed by Dr. MELA FLOWERS on 01/24/17 ([id number])
[2017-01-24] MEDS: K-DUR PO SCH ×2 (09:57→16:38)
[2017-01-25] MEDS: PERCOCET 5-325 PO PRN ×2 (02:46→22:22)
[2017-01-25] MEDS: PROTONIX PO SCH (05:41)
[2017-01-25] MEDS: NYSTATIN ORAL SUSP PO SCH ×5 (05:41→22:55)
[2017-01-25] MEDS ORDERED: POTASSIUM CHL 10% ORAL SOL PO SCH (09:00)
[2017-01-25] MEDS: ASPIRIN EC PO SCH ×2 (09:36→19:34)
[2017-01-25] MEDS: HYZAAR 50-12.5 MG TAB PO SCH (09:36)
[2017-01-25] MEDS: LOPRESSOR PO SCH (09:37)
[2017-01-25] MEDS: FERROUS SULFATE PO SCH ×2 (09:37→20:17)
[2017-01-25] MEDS: COLACE PO SCH (09:37)
[2017-01-25] MEDS: VITAMIN D PO SCH (09:37)
[2017-01-25] MEDS: K-DUR PO SCH (09:38)
[2017-01-25] MEDS: POTASSIUM CHL 10% ORAL SOL PO SCH ×2 (19:35→22:55)
[2017-01-26] MEDS: PROTONIX PO SCH (05:40)
[2017-01-26] MEDS: NYSTATIN ORAL SUSP PO SCH ×4 (05:40→20:41)
--- NOTE | 2017-01-26 08:42 | PCM.PROG ---
Attending Provider: ATTENDING PROVIDER: Dr. MELA FLOWERS This patient is seen with Sherri Mclean, Nurse Practitioner. DATE OF SERVICE: 01/26/17 SUBJECTIVE: This 86 year old WHITE/ F was hospitalized 01/19/17. The patient is lying in bed, alert. She states pain is well-controlled and has been doing well with therapy. REVIEW OF SYSTEMS: CONSTITUTIONAL: No night sweats. No fatigue, malaise, lethargy. No fever or chills. HEENT: Eyes: No visual changes. No eye pain. No eye discharge. ENT: No runny nose. No epistaxis. No sinus pain. No odynophagia. No congestion. RESPIRATORY: No cough, no congestion. No hemoptysis. No shortness of breath. CARDIOVASCULAR: No angina symptoms. No CHF symptoms. No atypical chest pain for CAD. No palpitations. No orthopnea.. GASTROINTESTINAL: No abdominal pain. No nausea or vomiting. No diarrhea or constipation. No hematemesis. No hematochezia. GENITOURINARY: No urgency. No frequency. No dysuria. No hematuria. No obstructive symptoms. No discharge. No pain. No significant abnormal bleeding. MUSCULOSKELETAL: Right knee pain. NEUROLOGICAL: Awake, alert, oriented to time, place and person. No headache. No neck pain. No syncope. No seizures. No dizziness. PSYCHIATRIC: Not anxious. No depression. No suicidal thoughts. No homicidal thoughts. SKIN: No rash. No lesions. Right knee incision. ENDOCRINE: No unexplained weight loss. No weight gain. HEMATOLOGIC/LYMPHATIC: No anemia. No purpura. No petechiae. No prolonged or excessive bleeding. No palpable lymph nodes. PHYSICAL EXAMINATION: GENERAL: The patient is awake, alert and oriented, lying in bed in no distress. VITAL SIGNS: Temperature 97.5 F, Pulse 78, Respiratory Rate 16, BP 123/66, Pulse Ox 97% HEENT: Head normocephalic, atraumatic. Eyes: Extraocular muscles are intact. Pupils are equal, round and reactive to light and accommodation. Ears: No lesions. Nose appeared normal. Throat: No exudate or erythema. NECK: Supple. No JVD, no carotid bruit. No lymphadenopathy or thyromegaly. LUNGS: Clear to auscultation. Percussion note normal. Chest symmetrical. HEART: S1, S2, no S3. No murmurs. No cyanosis or clubbing. No ascites. Pulses: Dorsalis pedis and posterior tibial pulses +1 to +2 both sides. ABDOMEN: Soft. Non-tender. Bowel sounds active. No CVA tenderness. No mass felt. EXTREMITIES: No edema. Full range of motion of all extremities, equal. Calf is soft and nontender. NEUROLOGIC: No focal deficit. Cranial nerves II through XII are grossly intact. No headache, no double vision or headache. SKIN: Not dry. Intact. Turgor-normal. Right knee incision is clean, dry and intact, no signs or symptoms of infection. Negative Krishan's sign, residual bruising. LYMPHATIC: No palpable lymph nodes/no lymphedema. MUSCULOSKELETAL: Normal joints with no swelling. Muscle tone is normal. LAB REVIEW: 01/26/17 04:16 01/26/17 04:16 01/26/17 04:16: Sodium 139, Potassium 4.2, Chloride 105, Carbon Dioxide 24, Anion Gap 14.2, BUN 18, Creatinine 0.72, Estimated GFR (MDRD) 77.00, BUN/ Creatinine Ratio 25.00, Glucose 95, Calcium 9.2, Total Bilirubin 0.87, AST 20, ALT 6 L, Alkaline Phosphatase 60, Total Protein 6.5, Albumin 2.6 L, Globulin 3.9 , Albumin/Globulin Ratio 0.67 01/26/17 04:16: WBC 7.30, RBC 3.00 L, Hgb 8.9 L, Hct 27.2 L, MCV 90.7, MCH 29.7 , MCHC 32.7, RDW Coeff of Liudmila 13.5, Plt Count 403, Immature Gran % (Auto) 0.7, Neut % (Auto) 56.2, Lymph % (Auto) 27.8, Hemphill % (Auto) 11.2 H, Eos % (Auto) 3.6 , Baso % (Auto) 0.5, Immature Gran # (Auto) 0.1, Neut # 4.1, Lymph # 2.0, Hemphill # 0.8, Eos # 0.3, Baso # 0.0 ASSESSMENT: 1. RIGHT KNEE REPLACEMENT RECOVERING WELL SO FAR WITH NO FURTHER COMPLICATIONS 2. ANEMIA STABLE 3. MILD HYPOKALEMIA TREATED WITH POTASSIUM SUPPLEMENTS 4. HEMATOMA MONITORED, SEEMS TO BE RESOLVING PLAN: 1. Decrease potassium back to b.i.d. Plan and coordination of the patient's care discussed in the presence of Pharmaceutical Officer and nurse. CONDITION: Stable SCRIBED BY: BART GUNDERSON Microsoft Architect scribed while in presence of service performed by Dr. Flowers/Sherri Mclean APRN on 01/26/17 ([id number])
[2017-01-26] MEDS: POTASSIUM CHL 10% ORAL SOL PO SCH ×2 (10:13→20:41)
[2017-01-26] MEDS: HYZAAR 50-12.5 MG TAB PO SCH (10:14)
[2017-01-26] MEDS: VITAMIN D PO SCH (10:14)
[2017-01-26] MEDS: ASPIRIN EC PO SCH ×2 (10:14→16:35)
[2017-01-26] MEDS: FERROUS SULFATE PO SCH ×2 (10:14→20:41)
[2017-01-26] MEDS: COLACE PO SCH (10:14)
[2017-01-26] MEDS: LOPRESSOR PO SCH (10:15)
[2017-01-26] MEDS: PERCOCET 5-325 PO PRN ×3 (11:51→21:48)
[2017-01-27] MEDS: PERCOCET 5-325 PO PRN ×4 (05:13→21:11)
[2017-01-27] MEDS: NYSTATIN ORAL SUSP PO SCH ×4 (05:36→21:11)
[2017-01-27] MEDS: PROTONIX PO SCH (05:37)
[2017-01-27] MEDS: POTASSIUM CHL 10% ORAL SOL PO SCH ×2 (09:06→21:11)
[2017-01-27] MEDS: ASPIRIN EC PO SCH ×2 (09:07→16:49)
[2017-01-27] MEDS: FERROUS SULFATE PO SCH ×2 (09:08→21:11)
[2017-01-27] MEDS: VITAMIN D PO SCH (09:08)
[2017-01-27] MEDS: LOPRESSOR PO SCH (09:08)
[2017-01-27] MEDS: HYZAAR 50-12.5 MG TAB PO SCH (09:08)
[2017-01-27] MEDS: COLACE PO SCH (09:08)
[2017-01-28] MEDS: PERCOCET 5-325 PO PRN ×4 (05:45→20:56)
[2017-01-28] MEDS: NYSTATIN ORAL SUSP PO SCH ×4 (05:45→20:56)
[2017-01-28] MEDS: PROTONIX PO SCH (05:46)
[2017-01-28] MEDS: POTASSIUM CHL 10% ORAL SOL PO SCH ×2 (09:41→20:55)
[2017-01-28] MEDS: ASPIRIN EC PO SCH ×2 (09:42→17:08)
[2017-01-28] MEDS: HYZAAR 50-12.5 MG TAB PO SCH (09:42)
[2017-01-28] MEDS: VITAMIN D PO SCH (09:42)
[2017-01-28] MEDS: LOPRESSOR PO SCH (09:42)
[2017-01-28] MEDS: COLACE PO SCH (09:42)
[2017-01-28] MEDS: FERROUS SULFATE PO SCH ×2 (09:42→20:56)
[2017-01-29] MEDS: PERCOCET 5-325 PO PRN ×5 (01:09→23:06)
[2017-01-29] MEDS: PROTONIX PO SCH (05:58)
[2017-01-29] MEDS: NYSTATIN ORAL SUSP PO SCH ×4 (05:59→20:50)
--- NOTE | 2017-01-29 08:53 | PN ---
DATE OF SERVICE: 01/26/17 SUBJECTIVE: The patient was hospitalized with right knee replacement. The patient's incision looks normal, calf muscles nontender with mild swelling noted of the right knee. The patient's mobility has increased and she is high motivated. Hgb and hct are stable. There is no evidence of active GI bleed. The patient had two units of packed red cells on 2010 after her left knee replacement. The patient was seen and examined with Nurse Practitioner. CONDITION: Stable. TIME SPENT: More than 30 minutes. Plan and coordination of the patient's care discussed in the presence of nurse. PARAM
[2017-01-29] MEDS: HYZAAR 50-12.5 MG TAB PO SCH (09:34)
[2017-01-29] MEDS: ASPIRIN EC PO SCH ×2 (09:34→16:50)
[2017-01-29] MEDS: COLACE PO SCH (09:35)
[2017-01-29] MEDS: POTASSIUM CHL 10% ORAL SOL PO SCH ×2 (09:35→20:50)
[2017-01-29] MEDS: VITAMIN D PO SCH (09:35)
[2017-01-29] MEDS: LOPRESSOR PO SCH (09:35)
[2017-01-29] MEDS: FERROUS SULFATE PO SCH ×2 (09:35→20:50)
--- NOTE | 2017-01-29 11:46 | PCM.PROG ---
Attending Provider: ATTENDING PROVIDER: Dr. MELA FLOWERS This patient is seen with Sherri Mclean, Nurse Practitioner. DATE OF SERVICE: 01/29/17 SUBJECTIVE: This 86 year old WHITE/ F was hospitalized 01/19/17. The patient is lying in bed, alert. She has been advancing well with PT. Anticipate d/c home. The patient will go home and daughter will be staying with her. REVIEW OF SYSTEMS: CONSTITUTIONAL: Weakness. No night sweats. No fever or chills. HEENT: Eyes: No visual changes. No eye pain. No eye discharge. ENT: No runny nose. No epistaxis. No sinus pain. No odynophagia. No congestion. RESPIRATORY: No cough, no congestion. No hemoptysis. No shortness of breath. CARDIOVASCULAR: No angina symptoms. No CHF symptoms. No atypical chest pain for CAD. No palpitations. No orthopnea.. GASTROINTESTINAL: No abdominal pain. No nausea or vomiting. No diarrhea or constipation. No hematemesis. No hematochezia. GENITOURINARY: No urgency. No frequency. No dysuria. No hematuria. No obstructive symptoms. No discharge. No pain. No significant abnormal bleeding. MUSCULOSKELETAL: Right knee pain. NEUROLOGICAL: Awake, alert, oriented to time, place and person. No headache. No neck pain. No syncope. No seizures. No dizziness. PSYCHIATRIC: Not anxious. No depression. No suicidal thoughts. No homicidal thoughts. SKIN: No rash. No lesions. No wounds. ENDOCRINE: No unexplained weight loss. No weight gain. HEMATOLOGIC/LYMPHATIC: No anemia. No purpura. No petechiae. No prolonged or excessive bleeding. No palpable lymph nodes. PHYSICAL EXAMINATION: GENERAL: The patient is awake, alert and oriented, lying in bed in no distress. VITAL SIGNS: Temperature 97.7 F, Pulse 86, Respiratory Rate 16, BP 137/74, Pulse Ox 95% HEENT: Head normocephalic, atraumatic. Eyes: Extraocular muscles are intact. Pupils are equal, round and reactive to light and accommodation. Ears: No lesions. Nose appeared normal. Throat: No exudate or erythema. NECK: Supple. No JVD, no carotid bruit. No lymphadenopathy or thyromegaly. LUNGS: Clear to auscultation. Percussion note normal. Chest symmetrical. HEART: S1, S2, no S3. No murmurs. No cyanosis or clubbing. No ascites. Pulses: Dorsalis pedis and posterior tibial pulses +1 to +2 both sides. ABDOMEN: Soft. Non-tender. Bowel sounds active. No CVA tenderness. No mass felt. EXTREMITIES: +1 edema right lower extremity; trace edema left lower extremity. Full range of motion of all extremities, equal. NEUROLOGIC: No focal deficit. Cranial nerves II through XII are grossly intact. No headache, no double vision or headache. SKIN: Warm and dry. Turgor-normal. Skin incision is clean and dry, intact with no sign of infection. LYMPHATIC: No palpable lymph nodes/no lymphedema. MUSCULOSKELETAL: Normal joints with no swelling. Muscle tone is normal. LAB REVIEW: 01/29/17 05:00 01/29/17 05:00 01/29/17 05:00: Sodium 138, Potassium 4.0, Chloride 104, Carbon Dioxide 25, Anion Gap 13.0, BUN 19 H, Creatinine 0.77, Estimated GFR (MDRD) 71.00, BUN/ Creatinine Ratio 24.67, Glucose 92, Calcium 9.2, Total Bilirubin 0.63, AST 14 L , ALT 7 L, Alkaline Phosphatase 66, Total Protein 6.5, Albumin 2.9 L, Globulin 3.6, Albumin/Globulin Ratio 0.81 01/29/17 05:00: WBC 6.27, RBC 3.16 L, Hgb 9.4 L, Hct 28.7 L, MCV 90.8, MCH 29.7 , MCHC 32.8, RDW Coeff of Liudmila 13.7, Plt Count 374, Immature Gran % (Auto) 0.5, Neut % (Auto) 47.2, Lymph % (Auto) 37.5, Geary % (Auto) 9.7, Eos % (Auto) 4.3, Baso % (Auto) 0.8, Immature Gran # (Auto) 0.0, Neut # 3.0, Lymph # 2.4, Geary # 0.6, Eos # 0.3, Baso # 0.1 ASSESSMENT: 1. RIGHT KNEE REPLACEMENT RECOVERING WELL SO FAR WITH NO FURTHER COMPLICATIONS 2. ANEMIA STABLE 3. MILD HYPOKALEMIA TREATED WITH POTASSIUM SUPPLEMENTS 4. HEMATOMA MONITORED, SEEMS TO BE RESOLVING PLAN: 1. PT OT 2. Remove davian 01/30/17 Plan and coordination of the patient's care discussed in the presence of Switchboard Inspector and nurse. CONDITION: Stable SCRIBED BY: BART GUNDERSON Car Construction Superintendent scribed while in presence of service performed by Dr. Flowers/Sherri Mclean APRN on 01/29/17 ([id number])
[2017-01-29 17:33] VITALS: TEMP 97.1
[2017-01-30] MEDS: NYSTATIN ORAL SUSP PO SCH ×2 (05:59→11:48)
[2017-01-30] MEDS: PROTONIX PO SCH (05:59)
[2017-01-30] MEDS: PERCOCET 5-325 PO PRN ×2 (06:04→11:50)
[2017-01-30 06:15] VITALS: BP 120/67
--- NOTE | 2017-01-30 09:11 | PCM.PROG ---
Attending Provider: ATTENDING PROVIDER: Dr. MELA MATHUR This patient is seen with Sherri Mclean, Nurse Practitioner. DATE OF SERVICE: 01/30/17 SUBJECTIVE: This 86 year old WHITE/ F was hospitalized 01/19/17. The patient is lying in bed, alert. She is ready to go home. The daughter will be staying with her. She would like to do PT and OT as an outpatient at [facility] in [place]. REVIEW OF SYSTEMS: CONSTITUTIONAL: No night sweats. No fatigue, malaise, lethargy. No fever or chills. HEENT: Eyes: No visual changes. No eye pain. No eye discharge. ENT: No runny nose. No epistaxis. No sinus pain. No odynophagia. No congestion. RESPIRATORY: No cough, no congestion. No hemoptysis. No shortness of breath. CARDIOVASCULAR: No angina symptoms. No CHF symptoms. No atypical chest pain for CAD. No palpitations. No orthopnea.. GASTROINTESTINAL: No abdominal pain. No nausea or vomiting. No diarrhea or constipation. No hematemesis. No hematochezia. GENITOURINARY: No urgency. No frequency. No dysuria. No hematuria. No obstructive symptoms. No discharge. No pain. No significant abnormal bleeding. MUSCULOSKELETAL: Right knee pain and swelling. NEUROLOGICAL: Awake, alert, oriented to time, place and person. No headache. No neck pain. No syncope. No seizures. No dizziness. PSYCHIATRIC: Not anxious. No depression. No suicidal thoughts. No homicidal thoughts. SKIN: No rash. No lesions. Right knee incision. ENDOCRINE: No unexplained weight loss. No weight gain. HEMATOLOGIC/LYMPHATIC: No anemia. No purpura. No petechiae. No prolonged or excessive bleeding. No palpable lymph nodes. PHYSICAL EXAMINATION: GENERAL: The patient is awake, alert and oriented, sitting in bed in no distress. VITAL SIGNS: Temperature 97.1 F, Pulse 77, Respiratory Rate 16, BP 120/67, Pulse Ox 97% HEENT: Head normocephalic, atraumatic. Eyes: Extraocular muscles are intact. Pupils are equal, round and reactive to light and accommodation. Ears: No lesions. Nose appeared normal. Throat: No exudate or erythema. NECK: Supple. No JVD, no carotid bruit. No lymphadenopathy or thyromegaly. LUNGS: Clear to auscultation. Percussion note normal. Chest symmetrical. HEART: S1, S2, no S3. No murmurs. No cyanosis or clubbing. No ascites. Pulses: Dorsalis pedis and posterior tibial pulses +1 to +2 both sides. ABDOMEN: Soft. Non-tender. Bowel sounds active. No CVA tenderness. No mass felt. EXTREMITIES: No edema. Full range of motion of all extremities, equal. NEUROLOGIC: No focal deficit. Cranial nerves II through XII are grossly intact. No headache, no double vision or headache. SKIN: Right knee incision is clean, dry and intact. Will remove daivan today. No signs or symptoms of infection. Mild residual bruising and swelling. LYMPHATIC: No palpable lymph nodes/no lymphedema. MUSCULOSKELETAL: Normal joints with no swelling. Muscle tone is normal. LAB REVIEW: 01/30/17 04:05 01/30/17 04:05 01/30/17 04:05: Sodium 138, Potassium 4.2, Chloride 103, Carbon Dioxide 26, Anion Gap 13.2, BUN 20 H, Creatinine 0.81, Estimated GFR (MDRD) 67.00, BUN/ Creatinine Ratio 24.69, Glucose 95, Calcium 8.9, Total Bilirubin 0.4, AST 14 L, ALT 6 L, Alkaline Phosphatase 66, Total Protein 6.2, Albumin 2.7 L, Globulin 3.5 , Albumin/Globulin Ratio 0.77 01/30/17 04:05: WBC 6.29, RBC 3.04 L, Hgb 9.2 L, Hct 27.9 L, MCV 91.8, MCH 30.3 , MCHC 33.0, RDW Coeff of Liudmila 13.9, Plt Count 357, Immature Gran % (Auto) 0.5, Neut % (Auto) 48.7, Lymph % (Auto) 33.7, [place] % (Auto) 12.4 H, Eos % (Auto) 4.1 , Baso % (Auto) 0.6, Immature Gran # (Auto) 0.0, Neut # 3.1, Lymph # 2.1, [place] # 0.8, Eos # 0.3, Baso # 0.0 ASSESSMENT: 1. RIGHT KNEE REPLACEMENT RECOVERING WELL SO FAR WITH NO FURTHER COMPLICATIONS 2. ANEMIA STABLE 3. MILD HYPOKALEMIA TREATED WITH POTASSIUM SUPPLEMENTS 4. HEMATOMA MONITORED, SEEMS TO BE RESOLVING PLAN: 1. D/C home, daughter to stay with her 2. Ferrous Sulfate b.i.d. 3. Potassium 10 mg daily 4. Will followup with Dr. Blackmon 02/14/17 5. PT at [facility] 6. Followup with Dr. Mathur next week Plan and coordination of the patient's care discussed in the presence of Foreign Collection Clerk and nurse. CONDITION: Stable SCRIBED BY: BART GUNDERSON Double End Tenoner Setter scribed while in presence of service performed by Dr. Mathur/Sherri Mclean APRN on 01/30/17 ([id number])
[2017-01-30] MEDS: ASPIRIN EC PO SCH (09:58)
[2017-01-30] MEDS: VITAMIN D PO SCH (09:58)
[2017-01-30] MEDS: FERROUS SULFATE PO SCH (09:58)
[2017-01-30] MEDS: LOPRESSOR PO SCH (09:58)
[2017-01-30] MEDS: POTASSIUM CHL 10% ORAL SOL PO SCH (09:58)
[2017-01-30] MEDS: HYZAAR 50-12.5 MG TAB PO SCH (09:58)
[2017-01-30] MEDS: COLACE PO SCH (09:58)
--- NOTE | 2017-01-30 11:07 | CM.DICTOOL ---
ADMISSION: 01/19/17 12:29 DISCHARGE: January 30, 2017 DATE OF SERVICE: 01/30/17 FINAL DIAGNOSIS Total Right Knee Arthroplasy, January 16, 2017 (Dr. Leon Blackmon) Decline in Functional Mobility Hypertension Anemia, Post-op Hypokalemia GERD Diabetes Mellitus Dyslipidemia Facial Palsy Hysterectomy Left Total Knee Replacement, 2010 LAST VITALS Temp Pulse Resp BP Pulse Ox 97.1 F L 77 16 120/67 97 01/30/17 06:00 01/30/17 06:00 01/30/17 06:00 01/30/17 06:00 01/30/17 06:00 ACTIVE HOME MEDICATIONS Cholecalciferol (Vitamin D) 1,000 unit PO DAILY [facility] Last Admin: 01/30/17 09:58 Dose: 1,000 unit Losartan 50/HCTZ 12.5 mg Daily [facility] Last Admin: 01/30/2017 09:58 Metoprolol Tartrate (Lopressor) 50 mg PO DAILYWM [facility] Last Admin: 01/30/17 09:58 Dose: 50 mg Pantoprazole Sodium (Protonix) 40 mg PO QDAC [facility] Last Admin: 01/30/17 05:59 Dose: 40 mg ALLERGIES quinine Adverse Reaction (Verified 06/21/16 11:47) Sulfa (Sulfonamide Antibiotics) Adverse Reaction (Verified 06/21/16 11:47) NEW PRESCRIPTIONS: Potassium Chloride Solution 10% take 10 meq daily (dilute in water) Ferrous Sulfate 324 mg BID Oxycodone 5-325 mg take 1 tablet every 4-6 hours prn pain (Dr. Blackmon) SMOKING: Not Applicable DISEASE SPECIFIC EDUCATION: Anemia Post-op Knee Replacement, discharge instructions Appointments LAB REVIEW: 01/30/17 04:05 01/30/17 04:05 01/30/17 04:05: Sodium 138, Potassium 4.2, Chloride 103, Carbon Dioxide 26, Anion Gap 13.2, BUN 20 H, Creatinine 0.81, Estimated GFR (MDRD) 67.00, BUN/ Creatinine Ratio 24.69, Glucose 95, Calcium 8.9, Total Bilirubin 0.4, AST 14 L, ALT 6 L, Alkaline Phosphatase 66, Total Protein 6.2, Albumin 2.7 L, Globulin 3.5 , Albumin/Globulin Ratio 0.77 01/30/17 04:05: WBC 6.29, RBC 3.04 L, Hgb 9.2 L, Hct 27.9 L, MCV 91.8, MCH 30.3 , MCHC 33.0, RDW Coeff of Liudmila 13.9, Plt Count 357, Immature Gran % (Auto) 0.5, Neut % (Auto) 48.7, Lymph % (Auto) 33.7, [place] % (Auto) 12.4 H, Eos % (Auto) 4.1 , Baso % (Auto) 0.6, Immature Gran # (Auto) 0.0, Neut # 3.1, Lymph # 2.1, [place] # 0.8, Eos # 0.3, Baso # 0.0 PLAN: Discharge home Diet: Regular as tolerated Activity: Per therapy guidelines for post-op knee replacement. Do not walk for exercise. Use walker with all ambulation Post-op instructions: Showering is permitted. Don't walk for exercise Full weight bearing status with a walker Please fill your prescription for pain medication. You may wean off pain medication as you deem appropriate as long as pain is under control. You may take tylenol instead of the prescribed pain medication as your pain improves. You may use cold packs 3 times daily for 15-30 minutes as necessary. Use a barrier cloth between your skin and the ice pack. Please take a stool softener daily (colace or dulcolax). You may obtain this over the counter at your pharmacy Please take Aspirin 81 mg twice a day for 4 weeks. (june stop 02-16-2017) Do Not Drive for 2 weeks or while taking pain medication Outpatient therapy at [facility] in [place], [place]. [facility] has been contacted for an outpatient order to be sent via fax to [facility]. An appointment will be called to you by [facility]. An appointment is scheduled with Dr. Mathur/Sherri Mclean APRN on February 07 at 2:45 pm An appointment is scheduled with Dr. Leon Blackmon on Feb 14, 2017 at 9:30 am at the [facility] Ms. Mckeon is alert and oriented x 3. She reports pain to the right knee at times, rated at a 3-5 on the pain scale. She reports her pain is relieved by the PRN medication (oxycodone). She denies nausea and her appetite has improved to 50-75%. Ms. Mckeon is transferring from the bed to the chair and chair to the bed independently. She is independent with bed mobility. She is independent with ambulation at distances of 200 feet with use of a rolling walker. She is independent with personal care and toileting. All davian have been removed from the right knee. The incision is clean and well approximated without signs of infection of drainage. Minimal swelling continues to the right knee, right thigh and lower leg. A open blister is present to the posterior right thigh that was present on admission. The area is healing and without signs of infection or drainage. The blister area is open to air. Fred Mathur MD Sherri Mclean APRN
--- NOTE | 2017-01-30 14:49 | PN ---
DATE OF SERVICE: 01/30/17 SUBJECTIVE: The patient was hospitalized on the swing bed with right knee replacement. The incision has completely healed up with evidence of infection. Her hgb and hct has been stable and rising. Her cardiovascular status is stable. She is up and about motivated. She has improved a lot. She will be discharged home. She was seen and examined with Nurse Practitioner and Surgical Aide. TIME SPENT: More than 30 minutes. Plan and coordination of the patient's care discussed in the presence of nurse. PARAM
--- NOTE | 2017-02-01 11:24 | PN ---
DATE OF SERVICE: 01/29/17 SUBJECTIVE: The patient was hospitalized on swing bed. 86 year old lady with right knee replacement. The patient is up and about progressing very well with physical therapy. Her anemia is better with hgb and hct improving. Her appetite is improving. PHYSICAL EXAMINATION: HEENT: Head normocephalic, atraumatic. Eyes: Extraocular muscles are intact. Pupils are equal, round and reactive to light and accommodation. Ears: No lesions. Nose appeared normal. Throat: No exudate or erythema. NECK: Supple. No JVD, no carotid bruit. No lymphadenopathy or thyromegaly. LUNGS: Clear to auscultation. Percussion note normal. Chest symmetrical. HEART: S1, S2, no S3. No murmurs. No cyanosis or clubbing. No ascites. Pulses: Dorsalis pedis and posterior tibial pulses +1 to +2 both sides. ABDOMEN: Soft. Nontender. Bowel sounds active. No CVA tenderness. No mass felt. EXTREMITIES: No edema. Full range of motion of all extremities, equal. Incision of the right knee is clean with no infection. NEUROLOGIC: No focal deficit. Cranial nerves II through XII are grossly intact. No headache, no double vision or headache. SKIN: Not dry. Intact. Turgor - normal. LYMPHATIC: No palpable lymph nodes/no lymphedema. MUSCULOSKELETAL: Normal joints with no swelling. Muscle tone is normal. CONDITION: Stable The patient was seen and examined with Nurse Practitioner. TIME SPENT: More than 30 minutes. Plan and coordination of the patient's care discussed in the presence of nurse. PARAM
--- NOTE | 2017-02-01 11:55 | PN ---
DATE OF SERVICE: 01/27/17 SUBJECTIVE: 86 year old white female hospitalized with right knee replacement. The patient' s condition has improved. She is feeling better. The right knee seems to be less swollen. The patient incision looks clean, no drainage. REVIEW OF SYSTEMS: CONSTITUTIONAL: No night sweats. No fatigue, malaise, lethargy. No fever or chills. HEENT: Eyes: No visual changes. No eye pain. No eye discharge. ENT: No runny nose. No epistaxis. No sinus pain. No sore throat. No odynophagia. No congestion. RESPIRATORY: No cough, no congestion. No hemoptysis. No shortness of breath. CARDIOVASCULAR: No angina symptoms. No CHF symptoms. No atypical chest pain for CAD. No palpitations. No orthopnea. GASTROINTESTINAL: No abdominal pain. No nausea or vomiting. No diarrhea or constipation. No hematemesis. No hematochezia. GENITOURINARY: No urgency. No frequency. No dysuria. No hematuria. No obstructive symptoms. No discharge. No pain. No significant abnormal bleeding. MUSCULOSKELETAL: No musculoskeletal pain; no joint swelling. NEUROLOGICAL: No headache. No neck pain. No syncope. No seizures. No dizziness. PSYCHIATRIC: Not anxious. No depression. No suicidal thoughts. No homicidal thoughts. SKIN: No rash. No lesions. No wounds. ENDOCRINE: No unexplained weight loss. No weight gain. HEMATOLOGIC/LYMPHATIC: No anemia. No purpura. No petechiae. No prolonged or excessive bleeding. No palpable lymph nodes. PHYSICAL EXAMINATION: VITAL SIGNS: Temperature 97.0, pulse 81, respiratory rate 16, blood pressure 121/67 and pulse ox 96%. HEENT: Head normocephalic, atraumatic. Eyes: Extraocular muscles are intact. Pupils are equal, round and reactive to light and accommodation. Ears: No lesions. Nose appeared normal. Throat: No exudate or erythema. Looks somewhat pale. NECK: Supple. No JVD, no carotid bruit. No lymphadenopathy or thyromegaly. LUNGS: Decreased breath sounds but clear to auscultation. Percussion note normal. Chest symmetrical. HEART: S1, S2, no S3. No murmurs. No cyanosis or clubbing. No ascites. Pulses: Dorsalis pedis and posterior tibial pulses +1 to +2 both sides. ABDOMEN: Soft. Nontender. Bowel sounds active. No CVA tenderness. No mass felt. EXTREMITIES: No edema. Full range of motion of all extremities, equal. NEUROLOGIC: No focal deficit. Cranial nerves II through XII are grossly intact. No headache, no double vision or headache. SKIN: Not dry. Intact. Turgor - normal. LYMPHATIC: No palpable lymph nodes/no lymphedema. MUSCULOSKELETAL: Normal joints with no swelling. Muscle tone is normal. LABS: hgb 9.1, hct 27, WBC 7,100 normal differential, creatinine 0.7, BUN 22. ASSESSMENT: 1. Right knee replacement seems to be progressing very well as far as her physical therapy is concerned. Healing is also taking place nicely. No evidence of infection. The patient's hgb and hct is stable and rising slowly. Appetite is improving some. The patient is highly motivated. PROGNOSIS: Good. TIME SPENT: More than 30 minutes. Plan and coordination of the patient's care discussed in the presence of nurse. PARAM
--- NOTE | 2017-02-15 11:46 | DS ---
DATE OF SERVICE: 01/30/17 (Discharged from Swing Bed) FINAL DIAGNOSIS: 1. TOTAL RIGHT KNEE ARTROPLASTY, 01/16/17 (DR. SARAH BLACKMON) 2. DECLINE IN FUNCTIONAL MOBILITY 3. HYPERTENSION 4. ANEMIA, POSTOP 5. HYPOKALEMIA 6. GERD 7. DIABETES MELLITUS 8. DYSLIPIDEMIA 9. FACIAL PALSY 10. HYSTERECTOMY 11. LEFT TOTAL KNEE REPLACEMENT, 2010 DISCHARGE INSTRUCTIONS: 1. Followup appointment: An appointment is scheduled with Dr. Mathur/Sherri Mclean APRN on 02/07/17 at 2:45 p.m. An appointment is scheduled with Dr. Sarah Blackmon on 02/14/17 at 9:30 a.m. at the [facility]. 2. Outpatient therapy at [facility] in [place], [place]. [facility] has been contacted for an outpatient order to be sent via fax to [facility]. An appointment will be called to you by [facility]. 3. You may use cold packs three times daily for 15 to 30 minutes as necessary. Use a barrier cloth between your skin and the ice pack. MEDICATIONS AT DISCHARGE: Vitamin D 1000 unit p.o. daily [facility] Losartan 50/HCTZ 12.5 mg daily [facility] Metoprolol (Lopressor) 50 mg p.o. daily with meal [facility] Protonix 40 mg p.o. q.d a.c. [facility] NEW PRESCRIPTIONS: Potassium Chloride 10% take 10 mEq daily (dilute in water) Ferrous Sulfate 324 mg b.i.d. Oxycodone 5-325 mg take one tablet every 4-6 hours p.r.n. pain (Dr. Blackmon) Please take a stool softener daily (Colace or Dulcolax). You may obtain this [id number] at your pharmacy. Please take aspirin 81 mg twice a day for 4 weeks (may stop 02/16/17) DIET INSTRUCTIONS: Regular as tolerated ACTIVITY: Per therapy guidelines for post-op knee replacement. Do not walk for exercise. Use walker with all ambulation. Do not drive for 2 weeks or while taking pain medication. SMOKING: N/A DISEASE SPECIFIC EDUCATION: Anemia Post-op knee replacement, discharge instructions Appointments HOSPITAL COURSE: This is an 86-year-old white female who was admitted to swing bed from [facility] after undergoing total right knee arthroplasty by Dr. Sarah Blackmon on 01/16/17. The patient was experiencing some anemia upon admission down to 8.8 but has been steady. We started her on Ferrous Sulfate b.i.d. Her hemoglobin at time of discharge is up to 9.2. She also experienced some hypokalemia during her hospital stay for which she was on potassium 20 mEq b.i.d. She will go home on Potassium 10 mEq daily as her potassium is steady at 4.1 today. She has done remarkably well with PT and OT during her stay here at the [facility]. Her vital signs have remained within normal limit. She steadily progressed every day. She had davian that were removed today on 01/30. Her incision is clean, dry and intact with no drainage, no signs of infection. She did have a blister behind her right knee due to tape and this has healed well and is intact now with no redness. She has some residual bruising around the incision site and minimal swelling to her right lower extremity. No edema to the left lower extremity. The patient is going to go home. Her daughter is going to stay with her for the next several weeks. She wishes to do physical rehab as an outpatient at [facility] in [place] for which we have faxed an order. She has a followup appointment with Dr. Blackmon on February 14, 2017. Again, she has done remarkably well with her physical and occupational therapy while here at the hospital. Her labs have remained stable. Her blood pressure has been controlled. She has done unremarkably well. Again, postop anemia is stable with hemoglobin of 9.2. We will followup with her next week. She is able to use a rolling walker for which she will go home with. She is independent of personal care and toileting. She will continue her exercises at home and we will follow up with her next week. POSTOP INSTRUCTIONS: Showering is permitted Don't walk for exercise Full weight-bearing status with a walker TIME SPENT: More than 60 minutes. PARAM
== END 2017-01-30 13:00 | disposition home or self-care (01) | DRG 560 ==
LOC: MEDSURG A 12:29
PROVIDERS: ADMIT Internal Medicine; ATTEND Internal Medicine
DX: Z47.1 Aftercare following joint replacement surgery (principal); D62 Acute posthemorrhagic anemia; M96.840 Postprocedural hematoma of a musculoskeletal structure following a musculoskeletal system procedure; Z96.651 Presence of right artificial knee joint; R26.9 Unspecified abnormalities of gait and mobility; I10 Essential (primary) hypertension; E87.6 Hypokalemia; K21.9 Gastro-esophageal reflux disease without esophagitis; E11.9 Type 2 diabetes mellitus without complications; E78.5 Hyperlipidemia, unspecified; G51.0 Bell's palsy; Z90.710 Acquired absence of both cervix and uterus; Z96.652 Presence of left artificial knee joint
CPT/HCPCS: 36415; 80053; 84439; 84443; 85025; 87081; 97802

== ENCOUNTER 2018-05-16 07:51 | Outpatient (CLI) ==
--- NOTE | 2018-05-16 10:24 | CT ---
EXAM: CT abdomen pelvis with contrast HISTORY: Right inguinal pain COMPARISON: None TECHNIQUE: CT abdomen pelvis performed with intravenous contrast. Coronal and sagittal reformatted images obtained. FINDINGS: Motion artifact somewhat degrades imaging. Mild bibasilar atelectasis. No free air. No a cute abnormalities of the bones. Degenerative change in the spine. Osteoarthritis of the hips. Hea rt normal in size. Liver appears normal. Gallbladder appears normal. Pancreas appears normal. Spl een appears normal. Adrenals appear normal. 4 mm nonobstructing left renal calculus. Area of scarr ing left kidney may relate to remote insult. No hydronephrosis. Bladder only mildly distended and p oorly evaluated, grossly unremarkable. Patient status post hysterectomy. Aorta normal in caliber. Mild atherosclerosis. 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 Small hiatal hernia. No dilated loops small bowel. Appendix not visualized. Colonic diverticulosis. Small rig ht inguinal hernia containing fat and trace fluid. Small fat-containing left inguinal hernia. No inf lammatory stranding identified in the abdomen or pelvis. Small fat-containing periumbilical hernia. IMPRESSION: 1. Small right inguinal hernia containing fat and trace fluid. Small fat-containing left inguinal h ernia. 2. Left nephrolithiasis. No hydronephrosis 3. Colonic diverticulosis 4. Small hiatal hernia
== END 2018-05-16 07:52 | disposition home or self-care (01) ==
LOC: RAD 07:51
PROVIDERS: ATTEND Internal Medicine
DX: R10.31 Right lower quadrant pain (principal); K40.90 Unilateral inguinal hernia, without obstruction or gangrene, not specified as recurrent
CPT/HCPCS: 36415; 82565